=== PATIENT | female | born 1980 | race Two or more races ===

== ENCOUNTER 2017-03-22 12:22 | Inpatient (IN) | payer OTHER ==
[2017-03-22] MEDS ORDERED: Dinoprostone* 10 MG VAG.SUPP VAGINAL ONE (12:23)
[2017-03-22 15:53] LABS: Hematocrit 31 % (35-47); Hemoglobin 10.2 g/dl (12.0-16.0); Mean Corpuscular HGB Conc 33 g/dl (31-36); Mean Corpuscular Hemoglobin 28 pg (27-31); Mean Corpuscular Volume 85 fL (80-97); Mean Platelet Volume 10 um3 (7.4-10.4); Red Blood Count 3.66 10^6/ul (4.0-5.4); Red Cell Distribution Width 14 % (10.5-15); White Blood Count 7.5 10^3/ul (3.5-10.8)
[2017-03-23] MEDS ORDERED: OBEPIDURAL* 250 ML ONE (09:26)
[2017-03-23] MEDS ORDERED: Phenylephrine IV* 40 MCG/ML 10 ML SYRINGE IV PUSH PRN ×3 (10:20→11:59)
[2017-03-23] MEDS ORDERED: Sodium Citrate/Citric Acid* 15 ML UDC PO PRN (10:20)
[2017-03-23] MEDS ORDERED: Oxytocin in LR* 20 UNITS/1,000 ML BAG IVPB ONE (10:35)
[2017-03-23] MEDS ORDERED: OBEPIDURAL* 250 ML EPIDURAL SCH (11:00)
[2017-03-23] MEDS ORDERED: Oxytocin in LR* 20 UNITS/1,000 ML BAG IVPB SCH ×2 (12:00→22:00)
[2017-03-23] MEDS ORDERED: Ondansetron INJ* 2 MG/ML VIAL IV ONE (16:25)
[2017-03-23] MEDS ORDERED: Ondansetron INJ* 2 MG/ML VIAL ONE (16:27)
[2017-03-23] MEDS ORDERED: oxyCODONE/Acetamin 5/325 MG* TAB PO PRN (21:13)
[2017-03-23] MEDS ORDERED: Acetaminophen TAB* 325 MG PO PRN (21:13)
[2017-03-23] MEDS ORDERED: Witch Hazel PAD* JAR TOPICAL PRN (21:13)
[2017-03-23] MEDS ORDERED: Dibucaine 1% 28.35 GM TUBE PR PRN (21:13)
[2017-03-23] MEDS: Ibuprofen TAB* 600 MG PO PRN (23:43)
[2017-03-24 06:30] LABS: Hematocrit 27 % (35-47); Hemoglobin 8.7 g/dl (12.0-16.0); Mean Corpuscular HGB Conc 33 g/dl (31-36); Mean Corpuscular Hemoglobin 28 pg (27-31); Mean Corpuscular Volume 84 fL (80-97); Mean Platelet Volume 9 um3 (7.4-10.4); Red Blood Count 3.17 10^6/ul (4.0-5.4); Red Cell Distribution Width 14 % (10.5-15); White Blood Count 15.2 10^3/ul (3.5-10.8)
[2017-03-24] MEDS: Ferrous Gluconate TAB* 324 MG TAB PO SCH ×2 (09:22→21:48)
[2017-03-24] MEDS: Ibuprofen TAB* 600 MG PO PRN ×2 (09:23→18:17)
[2017-03-24] MEDS: Docusate CAP* 100 MG PO SCH ×3 (09:24→21:48)
[2017-03-25] MEDS: Ibuprofen TAB* 600 MG PO PRN ×4 (03:19→22:53)
[2017-03-25] MEDS: Docusate CAP* 100 MG PO SCH ×3 (08:26→22:52)
[2017-03-25] MEDS: Ferrous Gluconate TAB* 324 MG TAB PO SCH ×2 (08:26→22:53)
--- NOTE | 2017-03-25 10:52 | PTEDU ---
Patient Name: DAJA ALCOCER DAJA ALCOCER selected video: Never Ever Shake a Baby to view on 03/25/2017 at 10:51:53 AM from [id number]
[2017-03-25 20:09] VITALS: BP 110/51
== END 2017-03-25 22:57 | disposition home or self-care (01) | DRG 775 ==
LOC: MCHOBOUT 12:22 → MCHOB 12:50
PROVIDERS: ADMIT Midwife; ATTEND Midwife
PROC: 10E0XZZ Delivery of Products of Conception, External Approach (ICD-10-PCS; principal; 2017-03-23)
PROC: 0KQM0ZZ Repair Perineum Muscle, Open Approach (ICD-10-PCS; 2017-03-23)
PROC: 3E033VJ Introduction of Other Hormone into Peripheral Vein, Percutaneous Approach (ICD-10-PCS; 2017-03-23)
PROC: 10907ZC Drainage of Amniotic Fluid, Therapeutic from Products of Conception, Via Natural or Artificial Opening (ICD-10-PCS; 2017-03-23)
DX: O48.0 Post-term pregnancy (principal); O32.2XX0 Maternal care for transverse and oblique lie, not applicable or unspecified; O70.1 Second degree perineal laceration during delivery; O09.513 Supervision of elderly primigravida, third trimester; Z3A.41 41 weeks gestation of pregnancy; Z37.0 Single live birth
CPT/HCPCS: 36415; 85025; 86850; 86900; 86901; A9270-GY; J2405

== ENCOUNTER 2017-07-24 09:12 | Emergency (ER) | payer OTHER ==
[2017-07-24 09:32] VITALS: BP 104/57
--- NOTE | 2017-07-24 09:50 | UC ---
Ear Complaint HPI - HPI Summary HPI Summary: Left ear pain for 4 days - History of Current Complaint Chief Complaint: UCEar Stated Complaint: EAR PAIN Time Seen by Provider: 07/24/17 09:34 Hx Obtained From: Patient Hx Last Menstrual Period: deivered 03/23/17 ?: No Onset/Duration: Sudden Onset, Lasting Days - 4, Worse Since - last night Severity Initially: Mild Severity Currently: Moderate Pain Intensity: 7 Pain Scale Used: 0-10 Numeric Aggravating Factors: Nothing Alleviating Factors: Nothing Associated Signs/Symptoms: Positive: Hearing Loss - Allergies/Home Medications Allergies/Adverse Reactions: Allergies Allergy/AdvReac Type Severity Reaction Status Date / Time No Known Allergies Allergy Verified 07/24/17 09:28 PMH/Surg Hx/FS Hx/Imm Hx Previously Healthy: Yes - Surgical History Surgical History: Yes Surgery Procedure, Year, and Place: wisdom teeth - Family History Known Family History: Positive: None - Social History Occupation: Works From/At Home Lives: With Family Alcohol Use: None Substance Use Type: None Smoking Status (MU): Never Smoked Tobacco - Immunization History Most Recent Influenza Vaccination: declined Most Recent Pneumonia Vaccination: none Review of Systems Constitutional: Negative Skin: Negative Eyes: Negative ENT: Ear Ache - left Respiratory: Negative Cardiovascular: Negative Gastrointestinal: Negative Genitourinary: Negative Motor: Negative Neurovascular: Negative Musculoskeletal: Negative Neurological: Negative Psychological: Negative Is Patient Immunocompromised?: No All Other Systems Reviewed And Are Negative: Yes Physical Exam Triage Information Reviewed: Yes Appearance: Well-Appearing, No Pain Distress, Well-Nourished Vital Signs: Initial Vital Signs Temp 97.5 F 07/24/17 09:29 Pulse 70 07/24/17 09:29 Resp 16 07/24/17 09:29 BP 104/57 07/24/17 09:29 Pulse Ox 99 07/24/17 09:29 Vital Signs Reviewed: Yes Eye Exam: Normal Eyes: Positive: Conjunctiva Clear ENT Exam: Normal ENT: Positive: Normal ENT inspection, Hearing grossly normal, Pharynx normal, TMs normal - right, Other: - left canal moist red swollen pain with movement of Pinna. Negative: Nasal congestion, Nasal drainage, Tonsillar swelling, Tonsillar exudate Dental Exam: Normal Neck exam: Normal Neck: Positive: Supple, Nontender, No Lymphadenopathy Respiratory Exam: Normal Respiratory: Positive: Chest non-tender, Lungs clear, Normal breath sounds, No respiratory distress, No accessory muscle use Cardiovascular Exam: Normal Cardiovascular: Positive: RRR, No Murmur, Pulses Normal Musculoskeletal Exam: Normal Musculoskeletal: Positive: Strength Intact, ROM Intact Neurological Exam: Normal Neurological: Positive: Alert, Muscle Tone Normal Psychological Exam: Normal Skin Exam: Normal Ear Complaint Course/Dx - Course Course Of Treatment: ciprodex, tylenol, warm compress follow with pcp prn - Differential Dx/Diagnosis Differential Diagnosis/HQI/PQRI: Cerumen Impaction, Otitis Externa, URI Provider Diagnoses: Left otitis externa Discharge - Discharge Plan Condition: Stable Disposition: HOME Prescriptions: Ciproflox/Dexameth OTIC.SUSP* [Ciprodex OTIC.SUSP*] 4 drop .SEE ORDER BID #1 [id number] Patient Education Materials: Otitis Externa (ED) Referrals: [facility] [Outside] - If Needed
== END 2017-07-24 09:58 | disposition home or self-care (01) ==
LOC: UCEAST 09:12
DX: H60.92 Unspecified otitis externa, left ear (principal)
CPT/HCPCS: 99212; G0463

== ENCOUNTER 2019-08-26 11:05 | Emergency (ER) | payer OTHER ==
[2019-08-26 11:28] VITALS: BP 114/71
[2019-08-26] MEDS ORDERED: Tetracaine 0.5% OPTH.SOL 4 ML* 1 DROP BTL RIGHT EYE ONE (12:10)
[2019-08-26] MEDS ORDERED: BSS OPTH.SOL* BTL OPHTHALMIC ONE (12:12)
[2019-08-26] MEDS ORDERED: Fluorescein Sodium TOPICAL* 1 MG TEST STRIP OPHTHALMIC ONE (12:12)
--- NOTE | 2019-08-26 12:13 | UC ---
Eye Complaint HPI - HPI Summary HPI Summary: Pt was poked in R eye by toddler finger yesterday. PT states eye has gotten worse today with redness, swelling, sensitivity to light, also very teary. States vision mildly affected. - History of Current Complaint Chief Complaint: UCEye Stated Complaint: EYE COMPLAINT Time Seen by Provider: 08/26/19 12:09 Hx Obtained From: Patient Hx Last Menstrual Period: 08/05/19 ?: No Onset/Duration: Sudden Onset, Lasting Days - 1 Timing: Constant Severity Initially: Mild Severity Currently: Mild Pain Intensity: 1 Location of Injury: Conjunctiva, Sclera Character: Foreign Body Sensation Associated Signs And Symptoms: Positive: Photophobia - Allergies/Home Medications Allergies/Adverse Reactions: Allergies Allergy/AdvReac Type Severity Reaction Status Date / Time No Known Allergies Allergy Verified 08/26/19 11:22 PMH/Surg Hx/FS Hx/Imm Hx Previously Healthy: Yes - Surgical History Surgical History: Yes Surgery Procedure, Year, and Place: wisdom teeth - Family History Known Family History: Positive: None Negative: Cardiac Disease, Hypertension - Social History Alcohol Use: Daily Alcohol Amount: 1 beer /day Substance Use Type: None Smoking Status (MU): Never Smoked Tobacco - Immunization History Most Recent Influenza Vaccination: declined Most Recent Pneumonia Vaccination: none Review of Systems All Other Systems Reviewed And Are Negative: Yes Eyes: Positive: Drainage, Eye Redness, Photophobia Is Patient Immunocompromised?: No Physical Exam Triage Information Reviewed: Yes Appearance: Well-Appearing, Well-Nourished, Pain Distress Vital Signs: Initial Vital Signs Temp 98.3 F 08/26/19 11:22 Pulse 56 08/26/19 11:22 Resp 18 08/26/19 11:22 BP 114/71 08/26/19 11:22 Pulse Ox 99 08/26/19 11:22 Vital Signs Reviewed: Yes Eyes: Positive: Conjunctiva Inflamed, Discharge, Other: - Ful glow applied and corneal abraision of the eye noted ENT Exam: Normal Neck exam: Normal Respiratory Exam: Normal Cardiovascular Exam: Normal Abdominal Exam: Normal Musculoskeletal Exam: Normal Neurological Exam: Normal Psychological Exam: Normal Skin Exam: Normal Eye Complaint Course/Dx - Course Course Of Treatment: hx obtained, exam performed ,meds reviewed, eye exam completed - Differential Dx/Diagnosis Differential Diagnosis/HQI/PQRI: Conjunctivitis, Corneal Abrasion, Penetrating Injury Provider Diagnosis: Corneal abrasion, right Discharge ED - Sign-Out/Discharge Documenting (check all that apply): Patient Departure All imaging exams completed and their final reports reviewed: No Studies - Discharge Plan Condition: Stable Disposition: HOME Prescriptions: Erythromycin OPHTH.OINT* [Ilotycin OPHTH.OINT*] 1 applic RIGHT EYE BEDTIME #1 tube Patient Education Materials: Corneal Abrasion (ED) Referrals: No Primary Care Phys,NOPCP [Primary Care Provider] - Nico Ness MD [Medical Doctor] - Additional Instructions: 1. use the cream as prescribed. 2. Follow up with Dr Leon office if not improving in the next few days - Billing Disposition and Condition Condition: STABLE Disposition: Home
== END 2019-08-26 12:36 | disposition home or self-care (01) ==
LOC: UCEAST 11:05
DX: S05.01XA Injury of conjunctiva and corneal abrasion without foreign body, right eye, initial encounter (principal); X58.XXXA Exposure to other specified factors, initial encounter; Y92.9 Unspecified place or not applicable
CPT/HCPCS: 99212; A9270-GY; G0463

== ENCOUNTER 2019-12-30 14:17 | Emergency (ER) | payer OTHER ==
--- NOTE | 2019-12-30 15:15 | UC ---
Shortness of Breath HPI - HPI Summary HPI Summary: 3 DAYS OF SENSATION OF SOB BOTH AT REST AND WITH EXERTION. MILD ST, ROSADO AND MYALGIAS. DENIES ANY CHRONIC MEDICAL PROBLEMS. NO ASTHMA. NO NAUSEA, NO FEVER, NO COUGH. - History of Current Complaint Chief Complaint: UCGeneralIllness Stated Complaint: RESP COMPLAINT Time Seen by Provider: 12/30/19 15:06 Hx Obtained From: Patient Hx Last Menstrual Period: 08/05/19 Onset/Duration: Gradual Onset, Lasting Days, Still Present Timing: Constant Current Severity: Mild Dyspnea At: Rest, Exertion Aggravating Factors: Movement Alleviating Factors: Nothing Associated Signs & Symptoms: Negative: Cough (Productive), Cough (Nonproductive) , Wheezing, Fever - Allergy/Home Medications Allergies/Adverse Reactions: Allergies Allergy/AdvReac Type Severity Reaction Status Date / Time No Known Allergies Allergy Verified 12/30/19 15:01 Home Medications: Home Medications Magnesium 30 mg PO DAILY 12/30/19 [History Confirmed 12/30/19] Multivitamin [Multivitamins] 1 cap PO DAILY 12/30/19 [History Confirmed 12/30/19 ] PMH/Surg Hx/FS Hx/Imm Hx Respiratory History: Asthma - A CHILD - Surgical History Surgical History: Yes Surgery Procedure, Year, and Place: wisdom teeth - Family History Known Family History: Positive: Hypertension, Respiratory Disease - COPD, ASTHMA Family History: COLON CANCER - Social History Alcohol Use: Occasionally Alcohol Amount: 1 beer /day Substance Use Type: None Smoking Status (MU): Never Smoked Tobacco - Immunization History Most Recent Influenza Vaccination: declined Most Recent Pneumonia Vaccination: none Review of Systems All Other Systems Reviewed And Are Negative: Yes Constitutional: Positive: Negative. Negative: Fever ENT: Positive: Sore Throat Respiratory: Positive: Shortness Of Breath. Negative: Cough Gastrointestinal: Positive: Negative Musculoskeletal: Positive: Myalgia Neurological/Mental Status: Positive: Headache Psychological: Positive: Anxious Physical Exam - Summary Physical Exam Summary: TO DECREASE THE RISK OF TRANSMISSION OF POSSIBLE COVID-19 I CONDUCTED THIS INTERVIEW USING TELEMEDICINE WHICH LIMITS THE PHYSICAL EXAM. Triage Information Reviewed: Yes Appearance: Well-Appearing, No Pain Distress, Well-Nourished Vital Signs: Laboratory Tests 12/30/19 12/30/19 15:47 15:49 Influenza A (Rapid) Negative Influenza B (Rapid) Negative Group A Strep Rapid Negative Vital Signs Reviewed: Yes Eyes: Positive: Conjunctiva Clear ENT: Positive: Hearing grossly normal Neck: Positive: Supple Respiratory: Positive: No respiratory distress, No accessory muscle use, Other: - LUNGS CLEAR PER NURSING ASSESSMENT Musculoskeletal: Positive: ROM Intact Neurological: Positive: Alert Psychological: Positive: Age Appropriate Behavior Shortness of Breath Dx - Course Course Of Treatment: FLU NEGATIVE. STREP NEGATIVE. GIVEN RESPIRATORY SYMPTOMS, TESTING FOR COVID19 DONE TODAY. PATIENT BEING DISCHARGED HOME TO SELF-ISOLATION AND WILL BE CONTACTED BY HD WITH RESULTS. CONTACT/DROPLET PRECAUTIONS TAKEN BY NURSING DURING ENCOUNTER. TO DECREASE THE RISK OF TRANSMISSION OF POSSIBLE COVID-19 MY PART OF THE INTERVIEW WAS DONE USING TELEMEDICINE. - Differential Dx/Diagnosis Provider Diagnosis: Shortness of breath Discharge ED - Sign-Out/Discharge Documenting (check all that apply): Patient Departure All imaging exams completed and their final reports reviewed: No Studies - Discharge Plan Condition: Stable Disposition: HOME Patient Education Materials: Dyspnea (ED) Forms: COVID-19 Tested & Isolation Referrals: [facility] [Outside] Additional Instructions: FLU NEGATIVE. STREP NEGATIVE. YOUR SYMPTOMS ARE LIKELY VIRALLY MEDIATED AND SHOULD RESOLVE ON THEIR OWN WITH TIME. NO INDICATION FOR ANTIBIOTICS AT PRESENT. GET REST AND STAY WELL HYDRATED. TESTING FOR COVID-19 COMPLETED TODAY. YOU SHOULD EXPECT RESULTS IN 3-7 DAYS. YOU ARE BEING DISCHARGED TO SELF- ISOLATION AT HOME. THE HEALTH DEPARTMENT WILL BE FOLLOWING UP WITH YOU. YOUR BREATHING IS UNLABORED, YOUR LUNGS ARE CLEAR AND YOUR OXYGEN LEVELS ARE 100%. THIS IS REASSURING. CALL 911 IF YOU DEVELOP WORSENING RESPIRATORY DISTRESS, FEVER, PAIN OR ANY OTHER CONCERNING SYMPTOMS. CALL THE NUMBER BELOW FOR ASSISTANCE IN ESTABLISHING WITH A PCP An additional resource available to assist in finding the appropriate physician for your health care needs is the [facility] ([facility]). You may contact them by calling [phone]. - Billing Disposition and Condition Condition: STABLE Disposition: Home
[2019-12-30 15:52] VITALS: BP 140/66
[2019-12-30 16:01] LABS: Influenza A Molecular Negative (Negative); Influenza B Molecular Negative (Negative)
== END 2019-12-30 16:10 | disposition home or self-care (01) ==
LOC: UCEAST 14:17
DX: R06.02 Shortness of breath (principal); J02.9 Acute pharyngitis, unspecified; R51 Headache; M79.10 Myalgia, unspecified site
CPT/HCPCS: 87651; 99211; G0463; U0002

== ENCOUNTER 2024-01-27 21:31 | Inpatient (IN) ==
[2024-01-27] MEDS ORDERED: Buffered Lidocaine 1% SYRIN 1 ml INTRADERM ONE (21:48)
[2024-01-27 23:14] LABS: ABS Lymphocytes 1.8 10^3/uL (1.0-4.8); ABS Monocytes 0.6 10^3/uL (0.0-0.9); ABS Neutrophils 7.3 10^3/uL (1.5-7.6); Eosinophil % 0.1 %; Hematocrit 36.9 % (35-45); Hemoglobin 12.8 g/dL (11.5-14.3); Lymphocyte % 18.7 %; Mean Corpuscular Hemoglobin 30.7 pg (27-33); Mean Corpuscular Hgb Conc 34.6 g/dL (31-36); Mean Corpuscular Volume 88.5 fL (80-97); Mean Platelet Volume 9.4 fL (7.5-11.2); Platelet Count 209 10^3/uL (150-450); Red Blood Count 4.17 10^6/uL (3.63-4.92); Red Cell Distribution Width 14.1 % (12-17); White Blood Count 9.8 10^3/uL (3.8-11.8)
[2024-01-27] MEDS ORDERED: Lidocaine 1% VIAL 10 MG/ML 30 ML VIAL INJ PRN (23:30)
[2024-01-27] MEDS: Lactated Ringers 1000 ml BAG 1,000 ML IV ONE (23:45)
[2024-01-27] MEDS ORDERED: Lactated Ringers 1000 ml BAG 1,000 ML IV SCH (23:45)
[2024-01-28] MEDS ORDERED: Lidocaine 1.5% EPI 1:200,000 30 ML SDV ONE (00:01)
[2024-01-28] MEDS ORDERED: OBEPIDURAL (200 ML) 0 ML EPIDURAL ONE (00:02)
[2024-01-28] MEDS ORDERED: Oxytocin in LR 20,000 MILLI.UNIT/1,000 ML BAG IV ONE (00:24)
[2024-01-28] MEDS ORDERED: Glycerin ADULT 2.4 gm SUPP PR PRN (01:44)
[2024-01-28] MEDS ORDERED: Oxytocin in LR 20,000 MILLI.UNIT/1,000 ML BAG IV SCH (01:45)
[2024-01-28] MEDS ORDERED: Lactated Ringers 1000 ml BAG 1,000 ML IV SCH (02:00)
[2024-01-28] MEDS: Dibucaine 1% OINT 28.35 GM TUBE PR PRN (03:22)
[2024-01-28] MEDS: Witch Hazel PAD JAR TOPICAL PRN (03:23)
[2024-01-28 06:53] LABS: Urine Benzodiazepine Screen None Detected (None Detect); Urine Cannabinoids Screen None Detected (None Detect); Urine Opiates Screen None Detected (None Detect)
[2024-01-29 07:19] LABS: ABS Eosinophils 0.1 10^3/uL (0.0-0.5); ABS Lymphocytes 2.6 10^3/uL (1.0-4.8); ABS Monocytes 0.5 10^3/uL (0.0-0.9); ABS Neutrophils 5.4 10^3/uL (1.5-7.6); Eosinophil % 0.6 %; Hematocrit 31.4 % (35-45); Hemoglobin 10.9 g/dL (11.5-14.3); Lymphocyte % 30.1 %; Mean Corpuscular Hgb Conc 34.8 g/dL (31-36); Platelet Count 163 10^3/uL (150-450); Red Blood Count 3.52 10^6/uL (3.63-4.92); Red Cell Distribution Width 14.3 % (12-17); White Blood Count 8.7 10^3/uL (3.8-11.8)
[2024-01-29 07:58] VITALS: BP 118/65
[2024-01-29] MEDS: RHO D Immune Globulin (HUMAN) 300 MCG = 1,500 I.U. INJ IM PRN (13:39)
== END 2024-01-29 14:39 | disposition home or self-care (01) | DRG 560 ==
LOC: MCHOBOUT 21:31 → MCHOB 22:55
PROVIDERS: ADMIT Midwife; ATTEND Midwife